=== PATIENT | male | born 1970 | race Caucasian/White ===

== ENCOUNTER 2017-02-06 16:48 | Emergency (ER) | payer BC ==
[~2017-02-06] VITALS: Ht 188 cm; Wt 97.3 kg
[~2017-02-06 16:48] MED LIST: CEPH500C PO
[2017-02-06 16:49] VITALS: TEMP 36.6; Ht 188 cm; Wt 97.3 kg
[2017-02-06] MEDS ORDERED: OXYCODONE HCL IR 5 MG TAB (IMMEDIATE RELEASE) PO STA (17:01)
[2017-02-06] MEDS ORDERED: XYLOCAINE 1%/SOD BICARB 20 ML VIAL INFIL ONE (17:15)
[2017-02-06] MEDS ORDERED: BUPIVACAINE 0.5 % 5 MG/1 ML MPF 30ML VIAL INFIL ONE (17:15)
[2017-02-06] MEDS ORDERED: DIPHTHERIA/TETANUS/PERTUSSIS 0.5 ML SYR/VIAL IM. ONE (17:15)
[2017-02-06] MEDS ORDERED: ACETAMINOPHEN 500 MG TAB PO ONE (17:19)
--- NOTE | 2017-02-06 17:44 | DIAGNOSTIC IMAGING REPORT ---
R FINGER(S) MIN 2 VIEWS ROUTINE CLINICAL HISTORY: 46 years-old Male presenting with RIGHT 3RD, EVAL FX, LAC FROM TABLESAW. TECHNIQUE: Frontal, oblique, and lateral views of the right third finger were obtained. COMPARISON: None. FINDINGS: An overlying bandage is noted along the distal right third finger. Radiolucency consistent with minimally displaced fracture across the tuft of the distal phalanx. This does not involve the distal interphalangeal joints. No other osseous injury. IMPRESSION: Minimally displaced fracture of the tuft of the distal phalanx of the right third finger. Electronically signed by: Óscar Deras M.D. 02/06/2017 5:43 PM Dictated Date/Time: 02/06/2017 5:42 PM
[2017-02-06] MEDS ORDERED: OXYC1TAB3 PO (18:18)
[2017-02-06] MEDS ORDERED: CEPH500C2 PO (18:18)
--- NOTE | 2017-02-06 18:19 | EMERGENCY ROOM VISIT NOTE ---
ED Visit Note First contact with patient: 16:56 CHIEF COMPLAINT: Right third finger laceration just prior to arrival HISTORY OF PRESENT ILLNESS: Patient is a left-hand dominant 46-year-old white male who presents the emergency department for evaluation of a laceration to his right third finger. He was using a table saw, when he accidentally struck the finger on the saw blade. The bleeding has stopped. Denies weakness or numbness of the finger. He rates his discomfort a 1/10. REVIEW OF SYSTEMS: Review of systems as per HPI. All other systems reviewed were negative. At least 6 systems reviewed. PMH: Electronic medical records are reviewed and summarized as above/below. See Problem List. Tetanus is greater than 10 years ago. SOCIAL HISTORY: Patient lives at home with his family. Nonsmoker. He is employed. PHYSICAL EXAM: Vital Signs: Reviewed Nurse's notes. There is a 3 cm long laceration on the tip of the right third finger, in the coronal plane, between the nail/nail bed, and the finger pad. The flap is able to be reflected back. I cannot visualize or palpate the distal phalanx, which is adequately covered with soft tissue. There is no laceration involving the nailbed or the nail. There is no foreign material in the wound and it looks clean. There is no bleeding. No deep structures such as tendons or nerves are seen in the base of the wound. Extension and flexion of the finger is full and strong. EMERGENCY DEPARTMENT COURSE: X-rays of the right third finger were obtained and were consistent with tuft fracture. Using sterile technique, saline and Betadine cleansing, a digital block was performed using a 2:1 mixture of 1% plain buffered lidocaine and 0.5% Sensorcaine. When adequate anesthesia was obtained, the finger was scrubbed thoroughly with Betadine, and laceration was irrigated copiously using normal saline solution. Combination of 4 and 5-0 nylon sutures were used to repair the laceration. The patient's tetanus was updated. He was medicated with acetaminophen for discomfort. He will be placed on Keflex due to the open fracture. He was given a metal finger splint that he can wear for support. There does not appear to be any tendinous disruption. No evidence for foreign body. Medication reconciliation: I attest that I have personally reviewed the patient' s current medication list. Blood pressure screening : Patient was found to have normal blood pressure on screening and does not require follow-up. R FINGER(S) MIN 2 VIEWS ROUTINE CLINICAL HISTORY: 46 years-old Male presenting with RIGHT 3RD, EVAL FX, LAC FROM TABLESAW. TECHNIQUE: Frontal, oblique, and lateral views of the right third finger were obtained. COMPARISON: None. FINDINGS: An overlying bandage is noted along the distal right third finger. Radiolucency consistent with minimally displaced fracture across the tuft of the distal phalanx. This does not involve the distal interphalangeal joints. No other osseous injury. IMPRESSION: Minimally displaced fracture of the tuft of the distal phalanx of the right third finger. Current/Historical Medications Scheduled Cephalexin Monohydrate (Keflex), 500 MG PO QID Scheduled PRN Oxycodone Immediate Rel Tab (Roxicodone Ir), 1-2 TAB PO Q4H PRN for Severe Pain Allergies Uncoded Allergies: NKA (Allergy, Unknown, 02/25/03) Vital Signs Date Time Temp Pulse Resp B/P (MAP) Pulse Ox O2 Delivery O2 Flow Rate FiO2 02/06/17 18:35 58 18 141/86 99 02/06/17 16:49 36.6 95 16 160/92 97 Room Air Medications Administered Medications (Trade) Dose Ordered Sig/Yaneth Route Start Time Stop Time Status Last Admin Dose Admin Diphtheria/ Pertussis/Tetanus Vacc (Adacel Inj) 0.5 ml ONCE ONCE IM. 02/06/17 17:15 02/06/17 17:16 DC 02/06/17 17:14 0.5 ML Acetaminophen (Tylenol Tab) 1,000 mg STK-MED ONCE PO 02/06/17 17:19 02/06/17 17:20 DC 02/06/17 17:24 1,000 MG Oxycodone HCl (Roxicodone Immediate Rel 5MG Home Pack) 1 homepack UD ONCE PO 02/06/17 18:30 02/06/17 18:31 DC 02/06/17 18:23 1 HOMEPACK Cephalexin Monohydrate (Keflex 500MG Home Pack) 1 homepack NOW ONCE PO 02/06/17 18:30 02/06/17 18:31 DC 02/06/17 18:23 1 HOMEPACK Departure Information Impression Primary Impression: Laceration of finger Additional Impression: Open fracture of tuft of distal phalanx of finger Prescriptions Oxycodone Immediate Rel Tab (ROXICODONE IR) 5 Mg Tab 1-2 TAB PO Q4H Y for Severe Pain, #15 TAB Prov: Lesly Bañuelos PA 02/06/17 Cephalexin Monohydrate (KEFLEX) 500 Mg Cap 500 MG PO QID, #40 CAP Prov: Lesly Bañuelos PA 02/06/17 Referrals No Doctor, Assigned (PCP) Patient Instructions [facility] Additional Instructions Keep wound clean and dry. Do not allow any crusting or dried blood to accumulate on sutures. If this occurs, clean gently with mild soap and water or 1:1 solution of hydrogen peroxide/water on a Q-tip. Use an antibiotic ointment for 3-4 days, then let wound dry. Suture removal in 14 days. Return sooner for any signs of infection (increasing redness, swelling, drainage). Wear the metal finger splint for support. May resume normal activity as pain allows. Ice and elevate for swelling and pain. Ibuprofen(Motrin, Advil) may be used for fever or pain. Use 600mg every six hours as needed. Take with food. Avoid using more than 2400mg in a 24 hour period. Do not use 2400mg per day for more than three consecutive days without physician direction. Prolonged inappropriate use can lead to stomach upset or ulcers. (AND/OR) Acetaminophen(Tylenol) may be used for fever or pain. Use 1000mg every six hours as needed. Avoid using more than 3000mg in a 24 hour period. Oxycodone (OxyIR) 5mg: Take 1-2 pills every four hours for breakthrough pain. Avoid alcohol, operating machinery or dangerous equipment, working on ladders or roofs, DRIVING, or situations where being under the influence may be dangerous. It is recommended to use an [id number] stool softener such as Colace, 100mg twice daily while taking this medication to avoid constipation. Cephalexin(Keflex) 500mg: Take one pill four times daily for 10 days to prevent bone infection. All antibiotics can cause diarrhea. If this occurs and you feel worse or it does not resolve in 1-2 days follow up with your doctor or return to the Emergency Department as this could be signs of serious underlying problems. Any medication can cause an allergic reaction, stop the pills immediately and return to the ER for rash, hives, breathing difficulties, or swelling. Problem Qualifiers Primary Impression: Laceration of finger Encounter type: initial encounter Finger: middle finger Damage to nail status: without damage Foreign body presence: without foreign body Laterality: right Qualified Codes: S61.212A - Laceration without foreign body of right middle finger without damage to nail, initial encounter
[2017-02-06] MEDS ORDERED: CEPHALEXIN 500MG HOME PACK 1 EA BTL PO ONE (18:30)
[2017-02-06] MEDS ORDERED: OXYCODONE IR HOME PACK PO ONE (18:30)
[2017-02-06 18:35] VITALS: BP 141/86; PULSE 58; O2SAT 99
== END 2017-02-06 18:39 | disposition home or self-care (01) ==
LOC: C.EDB 16:49 → C.EDD 18:39
DX: S61.212A Laceration without foreign body of right middle finger without damage to nail, initial encounter (principal); S62.632B Displaced fracture of distal phalanx of right middle finger, initial encounter for open fracture; W31.2XXA Contact with powered woodworking and forming machines, initial encounter; Z23 Encounter for immunization

== ENCOUNTER 2017-02-22 13:35 | Emergency (ER) | payer BC ==
[~2017-02-22] VITALS: Ht 188 cm; Wt 98.3 kg
[~2017-02-22 13:35] MED LIST changes: -CEPH500C PO; +CEPH500C2 PO; +OXYC1TAB3 PO
[2017-02-22 13:45] VITALS: TEMP 36.7; Ht 188 cm; Wt 98.3 kg
[2017-02-22 14:10] VITALS: BP 129/80; PULSE 65; O2SAT 94
--- NOTE | 2017-02-23 08:39 | EMERGENCY ROOM VISIT NOTE ---
ED Visit Note First contact with patient: 13:55 CHIEF COMPLAINT: Suture removal HISTORY OF PRESENT ILLNESS: This 47 year old male patient returns to the ED today for removal of sutures that were placed about 16 days ago. There has been no swelling, redness, or drainage from the wound. The patient feels like the laceration is healing well. Evidently one or more stitches did fall out spontaneously at this point. REVIEW OF SYSTEMS: A 6 system review of systems was completed with positives and pertinent negatives listed in the HPI. PMH: Unchanged from previous visit. ALLERGIES: NKDA PHYSICAL EXAM: Vital Signs: Reviewed Nurse's notes, vital signs stable. GENERAL : White male, in no acute distress. SKIN: There is a sutured wound on the right 3rd digit with no signs of infection. There is no erythema, swelling, or tenderness. EMERGENCY DEPARTMENT COURSE: 7 sutures were removed without any difficulty and there was no separation of the wound edges. The patient was discharged home in good condition. Current/Historical Medications Scheduled Cephalexin Monohydrate (Keflex), 500 MG PO QID Allergies Uncoded Allergies: NKA (Allergy, Unknown, 02/25/03) Vital Signs Date Time Temp Pulse Resp B/P (MAP) Pulse Ox O2 Delivery O2 Flow Rate FiO2 02/22/17 14:10 65 18 129/80 94 02/22/17 13:45 36.7 64 16 123/80 98 Room Air Departure Information Impression Primary Impression: Encounter for removal of sutures Dispostion Home / Self-Care Condition GOOD Referrals No Doctor, Assigned (PCP) Forms HOME CARE DOCUMENTATION FORM, IMPORTANT VISIT INFORMATION Patient Instructions [employer] Additional Instructions Wash any remaining debris in the [place] with activity as tolerated.
== END 2017-02-22 14:10 | disposition home or self-care (01) ==
LOC: C.EDB 13:36 → C.EDD 14:10
DX: S61.212D Laceration without foreign body of right middle finger without damage to nail, subsequent encounter (principal); X58.XXXD Exposure to other specified factors, subsequent encounter